=== PATIENT | male | born 1955 | race Caucasian/White ===

== ENCOUNTER 2022-11-10 08:36 | Emergency (ER) | payer BC ==
[2022-11-10 08:47] VITALS: BP 152/83; PULSE 76; RESP 16; TEMP 97.8; BMI 28.1
[2022-11-10] MEDS ORDERED: DEXAMETHASONE SOD PHOSPHATE 10 MG/1 ML VIAL IM ONE (09:43)
[2022-11-10] MEDS ORDERED: diphenhydrAMINE HCL 25 MG CAPSULE (FP) PO ONE ×2 (09:47→09:49)
[2022-11-10] MEDS ORDERED: DEXAMETHASONE SOD PHOSPHATE 10 MG/1 ML VIAL ONE (09:49)
== END 2022-11-10 11:53 | disposition home or self-care (01) ==
LOC: JER 08:36
PROC: 3E023GC Introduction of Other Therapeutic Substance into Muscle, Percutaneous Approach (ICD-10-PCS; principal; 2022-11-10)
DX: R06.02 Shortness of breath (principal); R07.0 Pain in throat; T78.40XA Allergy, unspecified, initial encounter
CPT/HCPCS: 93005; 93010; 99284-25; J1100